=== PATIENT | female | born 1960 | race Hispanic/Latino ===

== ENCOUNTER → 2018-11-05 | Outpatient (CLI) | payer MEDICARE ==
--- NOTE | 2018-11-05 14:14 | Diagnostic Imaging Report ---
Exam: Bilateral knee standing radiographs-1 view; right hip radiographs-2 views; left hip radiographs-2 views; lumbar spine radiographs-3 views History: Low back pain, spondylolysis, restless leg syndrome, Comparison: None. Findings: Diffuse osteopenia. Knee radiographs: There are mild medial compartment predominant degenerative changes of bilateral knees. No evidence of acute fracture or malalignment. Hip radiographs: There are mild bilateral hip degenerative changes. No evidence of acute fracture or malalignment. Lumbar spine radiographs: There has been L5-S1 fixation with bilateral screws. There is an intervertebral spacer. Surgical clips project over the left sacrum and left iliac bone. No evidence of acute fracture or malalignment. Vertebral body heights are preserved. There are mild degenerative disc changes. There are moderate facet degenerative changes, most pronounced at L5-S1. Impression: Mild bilateral knee and hip osteoarthritis. Mild degenerative disc and moderate facet degenerative changes in the lower lumbar spine. L5-S1 fixation hardware as above. Signed by: Dr. Radha Nick MD on 11/05/2018 2:10 PM
== END ==
LOC: RAD 12:22
PROVIDERS: ATTEND Family Medicine
DX: M54.5 Low back pain (principal); M47.27 Other spondylosis with radiculopathy, lumbosacral region; G25.81 Restless legs syndrome
CPT/HCPCS: 72100; 73521; 73565

== ENCOUNTER → 2020-01-06 | Outpatient (CLI) | payer MEDICARE ==
[~2020-01-06] MED LIST: IOPAMIDOL 370 MG/ML 200 ML INFUS..BTL INJ ONE; SODIUM CHLORIDE 0.9% 50ML 50 ML ONE
[2020-01-06 18:00] LABS: BLOOD UREA NITROGEN 18 mg/dL (7-26); BUN/CREATININE RATIO 26 (6-25); CREATININE, SERUM 0.68 mg/dL (0.57-1.11); EST GLOMERULAR FILTRATION RATE > 60 ML/MIN (60-)
--- NOTE | 2020-01-06 19:02 | Diagnostic Imaging Report ---
EXAMINATION: CT of the chest with contrast, PE protocol. TECHNIQUE: Spiral CT images of the chest were performed from the lung apices through the level of the adrenal glands after the IV administration of 100 cc of Isovue 370. Thin section reconstructions were obtained with special concentration on the pulmonary arteries. Coronal and sagittal reformatted images were obtained COMPARISON: <none> CLINICAL HISTORY:Shortness of breath, rapid breathing DISCUSSION: Lungs: No filling defects are identified in the main, right or left pulmonary arteries to their segmental levels, to suggest pulmonary embolism. Mild bilateral apical pleuroparenchymal scarring. Linear opacities in the anterior medial left lower lobe, likely represent subsegmental atelectasis or scarring. No pulmonary nodules, masses or consolidation. Airways: <The major airways are clear, without endobronchial lesion.> Pleura: <There is no evidence of pleural effusion or pneumothorax.> Heart and mediastinum: Thyroid is unremarkable. Mild cardiomegaly, with prominence of bilateral atria. No pericardial effusion. Aorta is nonaneurysmal. Main pulmonary artery is normal in caliber. Lymph nodes: No mediastinal, hilar or axillary adenopathy. Abdomen: Limited visualized portions of the abdomen showed no focal abnormality in the liver, spleen, pancreas, adrenal glands or left kidney. Cortical scarring is noted in the superior pole of the right kidney. Bones and soft tissues: No aggressive lytic or suspicious focal sclerotic lesions. Mild degenerated discs in the thoracic spine, with associated osteophytosis. Anterior fusion hardware is visualized in the lower cervical spine. Distal portion of stimulator wire noted in the spinal canal, terminating at the level of T8. Soft tissues are grossly unremarkable. IMPRESSION: 1. No CT evidence of pulmonary embolism. 2. Mild bilateral apical pleuroparenchymal scarring and left lower lobe subsegmental atelectasis or scarring. No consolidation, nodules or masses. 3. Mild cardiomegaly. 4. Findings discussed with USMAN Roger January 06, 2020 at 19 00 hours Signed by: Dr. Miguel Rivero M.D. on 01/06/2020 6:59 PM
== END ==
LOC: CT 17:05
PROVIDERS: ATTEND Family Medicine
DX: R06.02 Shortness of breath (principal); R00.8 Other abnormalities of heart beat
CPT/HCPCS: 36415; 71260; 82565; 84520; Q9967

== ENCOUNTER 2020-02-01 12:52 | Emergency (ER) | payer OTHER, MEDICARE ==
[~2020-02-01] VITALS: Ht 162.6 cm; Wt 59.0 kg
[2020-02-01] MEDS ORDERED: SODIUM CHLORIDE 0.9% 1000ML 1,000 ML IV STA ×2 (13:07)
[2020-02-01] MEDS ORDERED: ONDANSETRON HCL INJ 2MG/ML 2ML 2 MG/ML VIAL IV STA (13:07)
[2020-02-01] MEDS ORDERED: PANTOPRAZOLE 40 MG 10ML VIAL IV STA (13:07)
[2020-02-01 13:24] LABS: BASOPHILS % 0.6 % (0.0-1.0); HEMATOCRIT 40.6 % (34.2-44.1); HEMOGLOBIN 13.4 g/dL (12.0-16.0); LYMPHOCYTES # (AUTO) 0.8 (1.0-3.2); LYMPHOCYTES % 15.3 % (18.0-39.1); MEAN CORPUSCULAR VOLUME 90.8 fL (81-99); MONOCYTES # (AUTO) 0.3 (0.2-0.8); MONOCYTES % 6.2 % (4.4-11.3); NEUTROPHILS # (AUTO) 3.9 (2.1-6.9); NEUTROPHILS % 77.5 % (38.7-80.0); PLATELET COUNT 157 x10e3/uL (140-360); RED BLOOD COUNT 4.47 x10e6/uL (3.6-5.1); RED CELL DISTRIBUTION WIDTH 12.3 % (11.7-14.4)
[2020-02-01 13:34] LABS: INR 0.95; PROTHROMBIN TIME 13.2 seconds (11.9-14.5)
[2020-02-01 13:35] LABS: PARTIAL THROMBOPLASTIN TIME 27.9 seconds (23.8-35.5)
[2020-02-01 13:45] LABS: ALANINE AMINOTRANSFERASE 34 IU/L (0-55); ALBUMIN 3.8 g/dL (3.5-5.0); ALBUMIN/GLOBULIN RATIO 1.1 (0.8-2.0); ALKALINE PHOSPHATASE 111 IU/L (40-150); ANION GAP 21.2 mmol/L (8-16); BLOOD UREA NITROGEN 14 mg/dL (7-26); BUN/CREATININE RATIO 19 (6-25); CALCIUM 8.5 mg/dL (8.4-10.2); CARBON DIOXIDE 19 mmol/L (22-29); CHLORIDE 97 mmol/L (98-107); CREATINE KINASE 51 IU/L (29-168); CREATININE, SERUM 0.75 mg/dL (0.57-1.11); EST GLOMERULAR FILTRATION RATE > 60 ML/MIN (60-); GLUCOSE 99 mg/dL (74-118); LIPASE 43 U/L (8-78); MAGNESIUM 1.9 MG/DL (1.3-2.1); POTASSIUM 3.2 mmol/L (3.5-5.1); SODIUM 134 mmol/L (136-145)
--- NOTE | 2020-02-01 14:00 | Diagnostic Imaging Report ---
TECHNIQUE: Frontal view of the chest. INDICATION: ^N/V/D/ABD PAIN ^20200201 ^1315 COMPARISON: 01/06/2020 IMPRESSION: Lines and hardware: Stable. Heart and mediastinum: Stable. Lungs and pleura: No focal airspace consolidation. No pleural effusion. No pneumothorax. Soft tissues and bones: No acute abnormality. Signed by: Oj Downs MD on 02/01/2020 1:57 PM
[2020-02-01 15:15] LABS: COLOR,URINE YELLOW (YELLOW)
[2020-02-01 15:16] LABS: BILIRUBIN,URINE NEGATIVE (NEGATIVE); CLARITY,URINE CLEAR (CLEAR); KETONES,URINE 1+ (NEGATIVE); LEUKOCYTE ESTERASE ,URINE SMALL (NEGATIVE); NITRITE,URINE NEGATIVE (NEGATIVE); PROTEIN,URINE DIPSTICK NEGATIVE (NEGATIVE); URINE UROBILINOGEN 0.2 mg/dL (0.2 - 1)
--- NOTE | 2020-02-01 15:22 | Diagnostic Imaging Report ---
EXAM: CT of the abdomen and pelvis with intravenous contrast HISTORY: ^N/V/D/ABD PAIN ^20200201 ^2913 COMPARISON: None TECHNIQUE: Abdomen and pelvis were scanned utilizing a multidetector helical scanner. Coronal and sagittal reformations were obtained. Scan was performed during the portal venous phase. DOSE REDUCTION: The examination was performed according to the departmental dose-optimization program, which includes automated exposure control, adjustment of the mA and/or kV according to patient size and/or use of iterative reconstruction technique. FINDINGS: LINES and TUBES: Partially visualized spinal stimulator. LOWER THORAX: Unremarkable. HEPATOBILIARY: Right hepatic subcentimeter hypodensities too small to characterize. No biliary ductal dilation. GALLBLADDER: No radio-opaque stones or sludge. No wall thickening. SPLEEN: No splenomegaly. PANCREAS: No focal masses or ductal dilatation. ADRENALS: No adrenal nodules. KIDNEYS/URETERS: Extrarenal pelvis bilaterally. Kidneys enhance symmetrically. No hydronephrosis. No cystic or solid mass lesions. Subcentimeter left upper pole renal hypodensity is too small to characterize. No stones. GI TRACT: No abnormal distention, wall thickening, or evidence of bowel obstruction. Appendix is normal. PELVIC ORGANS/BLADDER: Unremarkable. LYMPH NODES: No lymphadenopathy. VESSELS: Scattered vascular calcifications. PERITONEUM / RETROPERITONEUM: No free air or fluid. BONES: Scattered degenerative changes. Lumbar hardware. SOFT TISSUES: Unremarkable. IMPRESSION: No acute intra-abdominal abnormality. Signed by: Oj Downs MD on 02/01/2020 3:18 PM
[2020-02-01 15:28] LABS: BACTERIA,URINE MODERATE /HPF; EPITHELIAL CELLS,URINE MODERATE /LPF; RBC,URINE 0-5 /HPF (0-5)
[2020-02-01] MEDS ORDERED: CEFTRIAXONE SOD 1 GM/NS 50 ML 50 ML IV ONE (15:45)
--- NOTE | 2020-02-01 16:06 | Emergency Department Note ---
History of Present Illnes History of Present Illness Chief Complaint: General Medicine Complaints History of Present Illness This is a 59 year old female HERE FOR NAUSEA, VOMITING AND DIARRHEA FOR THE LAST 3 DAYS. CLIENT DENIES FEVER, SHORTNESS OF BREATH. SAW DR. RICHARDSON YESTERDAY AND WAS GIVEN SOMETHING FOR NAUSEA. Historian: Patient Arrival Mode: [employer] Required: No Onset (how long ago): day(s) (3) Location: N/V/D Radiation: Reports non-radiation Severity: moderate Onset quality: gradual Timing of current episode: intermittent Progression: waxing and waning Chronicity: new Context: Denies recent illness Relieving factors: none Exacerbating factors: eating Associated symptoms: Reports denies other symptoms Treatments prior to arrival: none Past Medical/Family History Physician Review I have reviewed the patient's past medical and family history. Any updates have been documented here. Past Medical History Recent Fever: Yes Clinical Suspicion of Infectio: Yes New/Unexplained Change in Ment: No Other Medical History: RESTLESS LEGS Past Surgical History: Knee Replacement Social History Smoking Cessation: Never Smoker Counseling Performed: No Alcohol Use: None Any Illegal Drug Use: No TB Exposure/Symptoms: No Physically hurt or threatened: No Other Any Pre-Existing Lines (PICC,: No Is patient up to date on immun: Yes Last Flu: utd Last Pneumovax: utd Review of Systems Review of Systems Constitutional: Reports no symptoms EENTM: Reports no symptoms Cardiovascular: Reports no symptoms Respiratory: Reports no symptoms Gastrointestinal: Reports as per HPI, Reports diarrhea, Reports nausea, Reports vomiting Genitourinary: Reports no symptoms Musculoskeletal: Reports no symptoms Integumentary: Reports no symptoms Neurological: Reports no symptoms Psychological: Reports no symptoms Endocrine: Reports no symptoms Hematological/Lymphatic: Reports no symptoms Physical Exam Related Data Allergies: Coded Allergies: codeine (Verified Allergy, Intermediate, RASH, ITCHING, 02/01/20) Triage Vital Signs Vital Signs Date Time Temp Pulse Resp B/P (MAP) Pulse Ox O2 Delivery O2 Flow Rate FiO2 02/01/20 13:00 99.4 114 16 98/71 97 Vital signs reviewed: Yes Physical Exam CONSTITUTIONAL Constitutional: Present well-developed, Present well-nourished HENT HENT: Present normocephalic, Present atraumatic, Present oropharynx clear/moist, Present nose normal HENT L/R: Present left ext ear normal, Present right ext ear normal EYES Eyes: Reports PERRL, Reports conjunctivae normal NECK Neck: Present ROM normal PULMONARY Pulmonary: Present effort normal, Present breath sounds normal CARDIOVASCULAR Cardiovascular: Present regular rhythm, Present heart sounds normal, Present capillary refill normal, Present normal rate GASTROINTESTINAL Abdominal: Present soft, Present nontender, Present bowel sounds normal GENITOURINARY Genitourinary: Present exam deferred SKIN Skin: Present warm, Present dry MUSCULOSKELETAL Musculoskeletal: Present ROM normal NEUROLOGICAL Neurological: Present alert, Present oriented x 3, Present no gross motor or sensory deficits PSYCHOLOGICAL Psychological: Present mood/affect normal, Present judgement normal Results Laboratory Result Diagram: 02/01/20 1308 02/01/20 1308 Laboratory Laboratory Tests Test 02/01/20 13:42 02/01/20 13:12 02/01/20 13:08 Urine Color Yellow (YELLOW) Urine Clarity Clear (CLEAR) Urine pH 6.5 (5 - 7) Urine Specific [place] 1.010 (1.010-1.025) Urine Protein Negative (NEGATIVE) Urine Glucose (UA) Negative (NEGATIVE) Urine Ketones 1+ (NEGATIVE) Urine Blood Trace (NEGATIVE) Urine Nitrite Negative (NEGATIVE) Urine Bilirubin Negative (NEGATIVE) Urine Urobilinogen 0.2 mg/dL (0.2 - 1) Urine Leukocyte Esterase Small (NEGATIVE) Urine RBC 0-5 /HPF (0-5) Urine WBC 6-10 /HPF (0-5) Urine Epithelial Cells Moderate /LPF (NONE) Urine Bacteria Moderate /HPF (NONE) White Blood Count 5.04 x10e3/uL (4.8-10.8) Red Blood Count 4.47 x10e6/uL (3.6-5.1) Hemoglobin 13.4 g/dL (12.0-16.0) Hematocrit 40.6 % (34.2-44.1) Mean Corpuscular Volume 90.8 fL (81-99) Mean Corpuscular Hemoglobin 30.0 pg (28-32) Mean Corpuscular Hemoglobin Concent 33.0 g/dL (31-35) Red Cell Distribution Width 12.3 % (11.7-14.4) Platelet Count 157 x10e3/uL (140-360) Neutrophils (%) (Auto) 77.5 % (38.7-80.0) Lymphocytes (%) (Auto) 15.3 % (18.0-39.1) Monocytes (%) (Auto) 6.2 % (4.4-11.3) Eosinophils (%) (Auto) 0.0 % (0.0-6.0) Basophils (%) (Auto) 0.6 % (0.0-1.0) Neutrophils # (Auto) 3.9 (2.1-6.9) Lymphocytes # (Auto) 0.8 (1.0-3.2) Monocytes # (Auto) 0.3 (0.2-0.8) Eosinophils # (Auto) 0.0 (0.0-0.4) Basophils # (Auto) 0.0 (0.0-0.1) Absolute Immature Granulocyte (auto 0.02 x10e3/uL (0-0.1) Prothrombin Time 13.2 seconds (11.9-14.5) Prothromb Time International Ratio 0.95 Activated Partial Thromboplast Time 27.9 seconds (23.8-35.5) Sodium Level 134 mmol/L (136-145) Potassium Level 3.2 mmol/L (3.5-5.1) Chloride Level 97 mmol/L (98-107) Carbon Dioxide Level 19 mmol/L (22-29) Anion Gap 21.2 mmol/L (8-16) Blood Urea Nitrogen 14 mg/dL (7-26) Creatinine 0.75 mg/dL (0.57-1.11) Estimat Glomerular Filtration Rate > 60 ML/MIN (60-) BUN/Creatinine Ratio 19 (6-25) Glucose Level 99 mg/dL (74-118) Calcium Level 8.5 mg/dL (8.4-10.2) Magnesium Level 1.9 MG/DL (1.3-2.1) Total Bilirubin 0.9 mg/dL (0.2-1.2) Aspartate Amino Transf (AST/SGOT) 51 IU/L (5-34) Alanine Aminotransferase (ALT/SGPT) 34 IU/L (0-55) Alkaline Phosphatase 111 IU/L (40-150) Creatine Kinase 51 IU/L (29-168) Creatine Kinase MB 0.10 ng/mL (0-5.0) Troponin I 0.006 ng/mL (0-0.300) Total Protein 7.4 g/dL (6.5-8.1) Albumin 3.8 g/dL (3.5-5.0) Globulin 3.6 g/dL (2.3-3.5) Albumin/Globulin Ratio 1.1 (0.8-2.0) Lipase 43 U/L (8-78) Lab results reviewed: Yes Imaging Imaging results reviewed: Yes Impressions Procedure: [id number] DX/CHEST SINGLE (PORTABLE) Exam Date: 02/01/20 Exam Time: 1315 REPORT STATUS: Signed TECHNIQUE: Frontal view of the chest. INDICATION: ^N/V/D/ABD PAIN ^20200201 ^1315 COMPARISON: 01/06/2020 IMPRESSION: Lines and hardware: Stable. Heart and mediastinum: Stable. Lungs and pleura: No focal airspace consolidation. No pleural effusion. No pneumothorax. Soft tissues and bones: No acute abnormality. Signed by: Oj Downs MD on 02/01/2020 1:57 PM Procedure: [id number] CT/CT ABDOMEN/PELVIS W Exam Date: 02/01/20 Exam Time: 1443 REPORT STATUS: Signed EXAM: CT of the abdomen and pelvis with intravenous contrast HISTORY: ^N/V/D/ABD PAIN ^20200201 ^1443 COMPARISON: None TECHNIQUE: Abdomen and pelvis were scanned utilizing a multidetector helical scanner. Coronal and sagittal reformations were obtained. Scan was performed during the portal venous phase. DOSE REDUCTION: The examination was performed according to the departmental dose-optimization program, which includes automated exposure control, adjustment of the mA and/or kV according to patient size and/or use of iterative reconstruction technique. FINDINGS: LINES and TUBES: Partially visualized spinal stimulator. LOWER THORAX: Unremarkable. HEPATOBILIARY: Right hepatic subcentimeter hypodensities too small to characterize. No biliary ductal dilation. GALLBLADDER: No radio-opaque stones or sludge. No wall thickening. SPLEEN: No splenomegaly. PANCREAS: No focal masses or ductal dilatation. ADRENALS: No adrenal nodules. KIDNEYS/URETERS: Extrarenal pelvis bilaterally. Kidneys enhance symmetrically. No hydronephrosis. No cystic or solid mass lesions. Subcentimeter left upper pole renal hypodensity is too small to characterize. No stones. GI TRACT: No abnormal distention, wall thickening, or evidence of bowel obstruction. Appendix is normal. PELVIC ORGANS/BLADDER: Unremarkable. LYMPH NODES: No lymphadenopathy. VESSELS: Scattered vascular calcifications. PERITONEUM / RETROPERITONEUM: No free air or fluid. BONES: Scattered degenerative changes. Lumbar hardware. SOFT TISSUES: Unremarkable. IMPRESSION: No acute intra-abdominal abnormality. Signed by: Oj Downs MD on 02/01/2020 3:18 PM Procedures 12 Lead ECG Interpretation ECG Interpretation : ECG: ECG [employer]: Interpreted by ED physician Date: Feb 01, 2020 Time: 13:31 Rhythm: sinus rhythm Rate: normal QRS axis: normal ST segments normal: Yes T waves normal: Yes Clinical Impression: normal ECG Assessment & Plan Medical Decision Making MDM CHECK CBC, CHEM'S, LIPASE, CARDIAC MARKERS, ECG, UA/URINE CX, MAGNESIUM, COVID SWAB, CT ABD/PELVIS - R/O ELECTROLYTE ABNL, RENAL INSUFF/DEHYDRATION, UTI, STEMI/NSTEMI, HYPOMAG, COVID19 Reassessment Reassessment I SPOKE WITH DR RICHARDSON, PCP, WHO FEELS PT CAN GO HOME, WILL F/U IN CLINIC. DC WITH CEFTIN X 10 DAYS Assessment & Plan Final Impression: (1) Vomiting and diarrhea (2) UTI (urinary tract infection) Depart Disposition: HOME, SELF-CARE Last Vital Signs Date Time Temp Pulse Resp B/P (MAP) Pulse Ox O2 Delivery O2 Flow Rate FiO2 02/01/20 13:55 99.0 94 22 125/65 98 Medications in the ED Pantoprazole Sodium 40 mg ONCE STAT IV Last administered on 02/01/20at 13:56; Admin Dose 40 MG; Start 02/01/20 at 13:07; Stop 02/01/20 at 13:15; Status DC Ondansetron HCl 4 mg ONCE STAT IV Last administered on 02/01/20at 13:56; Admin Dose 4 MG; Start 02/01/20 at 13:07; Stop 02/01/20 at 13:14; Status DC Sodium Chloride 1,000 ml @ 0 mls/hr Q0M STAT IV Last administered on 02/01/20at 13:56; Admin Dose 999 MLS/HR; Start 02/01/20 at 13:07; Stop 02/01/20 at 13:12; Status DC Sodium Chloride 1,000 ml @ 0 mls/hr Q0M STAT IV Last administered on 02/01/20at 13:56; Admin Dose 999 MLS/HR; Start 02/01/20 at 13:07; Stop 02/01/20 at 13:12; Status DC Ceftriaxone Sodium 50 ml @ 100 mls/hr ONCE ONCE IV ; Start 02/01/20 at 15:45; Stop 02/01/20 at 16:14 NELDA ENRIQUEZ MD Feb 01, 2020 16:06
[2020-02-01] MEDS ORDERED: POTASSIUM CHLORIDE 20 MEQ TAB CR PO STA (16:31)
== END 2020-02-01 17:28 | disposition home or self-care (01) ==
LOC: ER 12:56
DX: R11.2 Nausea with vomiting, unspecified (principal); R19.7 Diarrhea, unspecified; N39.0 Urinary tract infection, site not specified; G25.81 Restless legs syndrome; Z11.59 Encounter for screening for other viral diseases
CPT/HCPCS: 36415; 71045; 74177; 80053; 81001; 82550; 82553; 83690; 83735; 84484; 85025; 85610; 85730; 87040; 87086; 87635; 93005; 99284; C9113; J2405; J7030

== ENCOUNTER → 2021-10-15 | Outpatient (CLI) | payer MEDICARE | LOC: CARD 09:18 | PROVIDERS: ATTEND Family Medicine | DX: I73.9 Peripheral vascular disease, unspecified (principal) | CPT/HCPCS: 93925 ==

== ENCOUNTER → 2022-04-22 | Outpatient (CLI) | payer MEDICARE | LOC: US 08:45 | PROVIDERS: ATTEND Family Medicine | DX: N83.202 Unspecified ovarian cyst, left side (principal); N13.2 Hydronephrosis with renal and ureteral calculous obstruction | CPT/HCPCS: 76770; 76856 ==

== ENCOUNTER 2023-02-03 09:32 | Emergency (ER) | payer MEDICARE ==
[~2023-02-03] VITALS: Ht 165.1 cm; Wt 68.0 kg
[2023-02-03] MEDS ORDERED: FAMOTIDINE 20 MG/2 ML VIAL IV STA (09:55)
[2023-02-03] MEDS ORDERED: ONDANSETRON HCL INJ 2MG/ML 2ML 2 MG/ML VIAL IV STA (09:55)
[2023-02-03] MEDS ORDERED: LACTATED RINGER'S 1,000 ML IV ONE (10:00)
[2023-02-03 10:08] LABS: BASOPHILS % 0.3 % (0.0-1.0); EOSINOPHILS # (AUTO) 0.1 (0.0-0.4); EOSINOPHILS % 0.6 % (0.0-6.0); HEMOGLOBIN 15.8 g/dL (12.0-16.0); LYMPHOCYTES # (AUTO) 0.9 (1.0-3.2); LYMPHOCYTES % 9.5 % (18.0-39.1); MEAN CORPUSCULAR HEMOGLOBIN 31.2 pg (28-32); MEAN CORPUSCULAR HGB CONC 34.3 g/dL (31-35); MEAN CORPUSCULAR VOLUME 90.7 fL (81-99); MONOCYTES # (AUTO) 0.8 (0.2-0.8); NEUTROPHILS # (AUTO) 7.5 (2.1-6.9); NEUTROPHILS % 80.3 % (38.7-80.0); PLATELET COUNT 283 x10e3/uL (140-360); RED BLOOD COUNT 5.07 x10e6/uL (3.6-5.1); RED CELL DISTRIBUTION WIDTH 12.9 % (11.7-14.4)
[2023-02-03 10:29] LABS: ANION GAP 19.2 mmol/L (8-16); CALCIUM 8.7 mg/dL (8.4-10.2); CREATININE, SERUM 0.85 mg/dL (0.57-1.11); POTASSIUM 3.2 mmol/L (3.5-5.1)
[2023-02-03] MEDS ORDERED: POTASSIUM CHLORIDE 20 MEQ TAB CR PO STA (11:27)
[2023-02-03 11:40] LABS: CLARITY,URINE SL CLOUDY (CLEAR); COLOR,URINE YELLOW (YELLOW)
[2023-02-03 11:41] LABS: KETONES,URINE 2+ (NEGATIVE); LEUKOCYTE ESTERASE ,URINE NEGATIVE (NEGATIVE); NITRITE,URINE POSITIVE (NEGATIVE); PROTEIN,URINE DIPSTICK 1+ (NEGATIVE); URINE UROBILINOGEN 0.2 mg/dL (0.2 - 1)
[2023-02-03 12:01] LABS: BACTERIA,URINE MODERATE /HPF; EPITHELIAL CELLS,URINE FEW /LPF; HYALINE CASTS 0-1 (0-1); RBC,URINE 0-5 /HPF (0-5)
[2023-02-03 12:07] VITALS: O2SAT 100
== END 2023-02-03 09:44 | disposition home or self-care (01) ==
LOC: ER 09:34
DX: E87.6 Hypokalemia (principal); N39.0 Urinary tract infection, site not specified; E86.0 Dehydration; M54.9 Dorsalgia, unspecified; G89.29 Other chronic pain; G25.81 Restless legs syndrome; R94.31 Abnormal electrocardiogram [ECG] [EKG]
CPT/HCPCS: 36415; 80048; 81001; 85025; 93005; 99284; J2405; J7121